=== PATIENT | male | born 1950 | race Caucasian/White ===

== ENCOUNTER → 2017-02-02 | Outpatient (CLI) | payer MEDICARE, OTHER | LOC: SLEEP 21:30 | DX: G47.33 Obstructive sleep apnea (adult) (pediatric) (principal) | CPT/HCPCS: 95811 ==

== ENCOUNTER 2020-11-12 10:16 | Observation (INO) | payer OTHER ==
[~2020-11-12] VITALS: Ht 188 cm; Wt 134.4 kg
[~2020-11-12 10:16] MED LIST: ALEVE220 M1 PO; ANTIVERT 25MG T25 MG PO; CENTRUM SILVER1 EAC1 PO; COZAAR100 MG PO; CRESTOR20 MG PO; ECOTRIN81 MG PO; EFFEXOR XR75 MG PO; FLOMAX0.4 MG PO; GLUCOPHAGE1000 MG PO; GLUCOTROL5 MG PO; HYDROCHLOROTHIA25 MG PO; LANTUS SOL100 UNIT/1 SQ; MELATONIN10 M2 PO; MOBIC15 MG PO; NORVASC10 MG PO; OMEPRAZOLE40 MG PO; PROAIR HFA8.5 GM INH; TOPROL XL50 MG PO
[2020-11-12] MEDS ORDERED: ECOTRIN81 MG PO (11:35)
[2020-11-12] MEDS ORDERED: CENTRUM SILVER1 EAC1 PO (11:35)
[2020-11-12] MEDS ORDERED: GLIPIZIDE5 MG PO (11:36)
[2020-11-12] MEDS ORDERED: LANTUS100 UNIT/1 SC ×2 (11:37→11:40)
[2020-11-12] MEDS ORDERED: COZAAR100 MG PO (11:41)
[2020-11-12] MEDS ORDERED: MELATONIN3 MG PO (11:42)
[2020-11-12] MEDS ORDERED: MELOXICAM15 MG PO (11:42)
[2020-11-12] MEDS ORDERED: METFORMIN HCL1000 MG PO (11:55)
[2020-11-12] MEDS ORDERED: METOPROLOL SUCC50 MG PO (11:56)
[2020-11-12] MEDS ORDERED: OMEPRAZOLE20 MG PO (11:57)
[2020-11-12] MEDS ORDERED: CRESTOR20 MG PO (11:57)
[2020-11-12] MEDS ORDERED: TAMSULOSIN HCL0.4 MG PO (11:58)
[2020-11-12] MEDS ORDERED: TYLENOL 500 MG500 MG PO (11:58)
[2020-11-12] MEDS ORDERED: EFFEXOR XR 75 M75 MG PO (11:59)
[2020-11-12] MEDS ORDERED: VITAMIN C1000 MG PO (11:59)
[2020-11-13 08:24] LABS: HEMOGLOBIN 13.8 gm/dl (14.0-17.5); RED BLOOD COUNT 4.52 M/UL (4.20-5.50)
[2020-11-13 08:36] LABS: WHITE BLOOD COUNT 10.7 K/UL (4.5-11.0)
[2020-11-14 03:17] LABS: HEMOGLOBIN 13.2 gm/dl (14.0-17.5); RED BLOOD COUNT 4.32 M/UL (4.20-5.50); WHITE BLOOD COUNT 8.5 K/UL (4.5-11.0)
[2020-11-14 03:51] LABS: BUN/CREATININE RATIO 20 (0-10)
[2020-11-14] MEDS ORDERED: ATORVASTATIN CA20 MG PO (15:34)
[2020-11-14] MEDS ORDERED: CLOPIDOGREL75 MG PO (15:34)
[2020-11-14] MEDS ORDERED: BETAPACE 80MG T80 MG PO (15:34)
== END 2020-11-14 16:17 | disposition home or self-care (01) ==
LOC: CATH 10:16 → PROG CARE 20:21 → CDU 20:22 → CATH 20:22 → PROG CARE 21:08
PROVIDERS: Internal Medicine Interventional Cardiology; ADMIT Internal Medicine
PROC: 0JH632Z Insertion of Monitoring Device into Chest Subcutaneous Tissue and Fascia, Percutaneous Approach (ICD-10-PCS; principal; 2020-11-12)
PROC: 0JH632Z Insertion of Monitoring Device into Chest Subcutaneous Tissue and Fascia, Percutaneous Approach (ICD-10-PCS; 2020-11-12)
PROC: 4A1234Z Monitoring of Cardiac Electrical Activity, Percutaneous Approach (ICD-10-PCS; 2020-11-12)
PROC: 027236Z Dilation of Coronary Artery, Three Arteries with Three Drug-eluting Intraluminal Devices, Percutaneous Approach (ICD-10-PCS; 2020-11-13)
PROC: 4A0234Z Measurement of Cardiac Electrical Activity, Percutaneous Approach (ICD-10-PCS; 2020-11-13)
PROC: B2111ZZ Fluoroscopy of Multiple Coronary Arteries using Low Osmolar Contrast (ICD-10-PCS; 2020-11-13)
PROC: B2151ZZ Fluoroscopy of Left Heart using Low Osmolar Contrast (ICD-10-PCS; 2020-11-13)
DX: I21.4 Non-ST elevation (NSTEMI) myocardial infarction (principal); I25.119 Atherosclerotic heart disease of native coronary artery with unspecified angina pectoris; I10 Essential (primary) hypertension; I47.2 Ventricular tachycardia; E78.5 Hyperlipidemia, unspecified; E66.9 Obesity, unspecified; F41.9 Anxiety disorder, unspecified; E11.9 Type 2 diabetes mellitus without complications; M19.90 Unspecified osteoarthritis, unspecified site; J45.909 Unspecified asthma, uncomplicated; F32.9 Major depressive disorder, single episode, unspecified; K21.9 Gastro-esophageal reflux disease without esophagitis; E78.00 Pure hypercholesterolemia, unspecified; G47.33 Obstructive sleep apnea (adult) (pediatric); M51.36 Other intervertebral disc degeneration, lumbar region; Z88.5 Allergy status to narcotic agent; Z87.891 Personal history of nicotine dependence; Z68.35 Body mass index [BMI] 35.0-35.9, adult; Z79.02 Long term (current) use of antithrombotics/antiplatelets; Z79.4 Long term (current) use of insulin; Z79.82 Long term (current) use of aspirin; Z79.899 Other long term (current) drug therapy
CPT/HCPCS: ECHO; 36415; 71045; 80048; 82550; 82553; 82962; 84484; 85025; 85027; 85347; 85610; 85730; 93005; 93306; 93620; 93621; 94660; 94760; 96372; 96375; 96376; 99152; 99153; C1725; C1730; C1760; C1764; C1766; C1769; C1874; C1887; C9600; G0378; J1644; J1650; J1885; J2250; J3010; J3370; J7030; J7040; J7050; Q9967

== ENCOUNTER → 2021-01-12 | Outpatient (CLI) | payer OTHER ==
[~2021-01-12] MED LIST changes: +ATORVASTATIN CA20 MG PO; +BETAPACE 80MG T80 MG PO; +CLOPIDOGREL75 MG PO; +EFFEXOR XR 75 M75 MG PO; +GLIPIZIDE5 MG PO; +LANTUS100 UNIT/1 SC; +MELATONIN3 MG PO; +MELOXICAM15 MG PO; +METFORMIN HCL1000 MG PO; +METOPROLOL SUCC50 MG PO; +OMEPRAZOLE20 MG PO; +TAMSULOSIN HCL0.4 MG PO; +TYLENOL 500 MG500 MG PO; +VITAMIN C1000 MG PO
== END ==
LOC: KOH-I 11:40
DX: J20.9 Acute bronchitis, unspecified (principal); R06.02 Shortness of breath
CPT/HCPCS: 71046

== ENCOUNTER → 2021-03-22 | Outpatient (CLI) | payer OTHER | LOC: SLEEP 10:45 | DX: G47.10 Hypersomnia, unspecified (principal); G47.30 Sleep apnea, unspecified | CPT/HCPCS: 95811 ==

== ENCOUNTER 2021-06-23 12:05 | Emergency (ER) | payer OTHER ==
[~2021-06-23] VITALS: Ht 188 cm; Wt 119.3 kg
[2021-06-23 13:01] LABS: HEMOGLOBIN 15.6 gm/dl (14.0-17.5); RED BLOOD COUNT 4.9 M/UL (4.20-5.50); WHITE BLOOD COUNT 3.3 K/UL (4.5-11.0)
[2021-06-23 13:25] LABS: BUN/CREATININE RATIO 17 (0-10)
== END 2021-06-23 14:46 | disposition home or self-care (01) ==
LOC: ER1 12:05
PROVIDERS: Physician Assistant
DX: Z23 Encounter for immunization (principal); U07.1 COVID-19; E78.5 Hyperlipidemia, unspecified; E11.9 Type 2 diabetes mellitus without complications; I10 Essential (primary) hypertension; Z79.899 Other long term (current) drug therapy; Z88.5 Allergy status to narcotic agent; Z88.6 Allergy status to analgesic agent
CPT/HCPCS: 71045; 80053; 85025; 99285; M0243

== ENCOUNTER → 2021-12-14 | Outpatient (CLI) | payer MEDICARE | LOC: KOH-I 11:24 | DX: J18.9 Pneumonia, unspecified organism (principal) | CPT/HCPCS: 71046 ==

== ENCOUNTER → 2021-12-30 | Outpatient (CLI) | payer MEDICARE | LOC: KOH-I 12-28 10:15 | DX: S36.92XA Contusion of unspecified intra-abdominal organ, initial encounter (principal); K76.0 Fatty (change of) liver, not elsewhere classified | CPT/HCPCS: 76700 ==

== ENCOUNTER → 2022-04-06 | Outpatient (CLI) | payer MEDICARE | LOC: HEART 5 15:30 | DX: I25.10 Atherosclerotic heart disease of native coronary artery without angina pectoris (principal); I49.3 Ventricular premature depolarization; R06.02 Shortness of breath; I27.20 Pulmonary hypertension, unspecified; I35.1 Nonrheumatic aortic (valve) insufficiency | CPT/HCPCS: 93306 ==